=== PATIENT | female | born 1950 | race Two or more races ===

== ENCOUNTER 2018-01-07 06:42 | Inpatient (IN) | payer OTHER ==
[~2018-01-07 06:42] MED LIST: DICY20TA; HYDROCHLOROTH12.5 MG; INTESTINEX1 CA1; PNEU16DI2; PREVENT; RISEDRONATE SO150 MG
== END 2018-01-11 13:20 | disposition home or self-care (01) | DRG 908 ==
LOC: AMB-ENDOS 06:42 → SURH 17:53
PROVIDERS: Colon & Rectal Surgery
PROC: 0DJD8ZZ Inspection of Lower Intestinal Tract, Via Natural or Artificial Opening Endoscopic (ICD-10-PCS; 2018-01-07)
PROC: 0D7P8ZZ Dilation of Rectum, Via Natural or Artificial Opening Endoscopic (ICD-10-PCS; 2018-01-07)
PROC: 0DTE0ZZ Resection of Large Intestine, Open Approach (ICD-10-PCS; principal; 2018-01-07 14:00)
PROC: 30233N1 Transfusion of Nonautologous Red Blood Cells into Peripheral Vein, Percutaneous Approach (ICD-10-PCS; 2018-01-08)
DX: K91.71 Accidental puncture and laceration of a digestive system organ or structure during a digestive system procedure (principal); K57.32 Diverticulitis of large intestine without perforation or abscess without bleeding; Y65.8 Other specified misadventures during surgical and medical care; Y92.530 Ambulatory surgery center as the place of occurrence of the external cause; K62.4 Stenosis of anus and rectum; K59.09 Other constipation; D64.89 Other specified anemias

== ENCOUNTER → 2019-02-17 | Day surgery (SDC) | payer OTHER | END | disposition home or self-care (01) | LOC: ADM 02-09 09:30 → AMB-ENDOS 06:40 | DX: K57.20 Diverticulitis of large intestine with perforation and abscess without bleeding (principal); K64.1 Second degree hemorrhoids ==

== ENCOUNTER 2020-11-18 07:48 | Outpatient (CLI) | payer OTHER | END 2020-11-18 10:26 | disposition home or self-care (01) | LOC: SONOGRAMA 07:48 | PROVIDERS: ATTEND Pathology Anatomic Pathology & Clinical Pathology | DX: D34 Benign neoplasm of thyroid gland (principal); E04.1 Nontoxic single thyroid nodule ==

== ENCOUNTER 2021-01-08 07:48 | Outpatient (CLI) | payer OTHER | END 2021-01-08 07:49 | disposition home or self-care (01) | LOC: RX STUDY 07:48 | PROVIDERS: ATTEND Colon & Rectal Surgery | DX: R13.19 Other dysphagia (principal) ==

== ENCOUNTER 2021-01-24 08:40 | Day surgery (SDC) | payer OTHER | END 2021-01-24 12:59 | disposition home or self-care (01) | LOC: AMB-ENDOS 08:40 | PROVIDERS: ATTEND Colon & Rectal Surgery | DX: D12.5 Benign neoplasm of sigmoid colon (principal); D12.4 Benign neoplasm of descending colon; K64.1 Second degree hemorrhoids; Z20.822 Contact with and (suspected) exposure to COVID-19 ==

== ENCOUNTER 2025-11-19 13:59 | Outpatient (CLI) | payer OTHER | END 2025-11-19 14:03 | disposition home or self-care (01) | LOC: SONOGRAMA 13:59 | PROVIDERS: ATTEND Pathology Anatomic Pathology & Clinical Pathology | DX: D34 Benign neoplasm of thyroid gland (principal); E07.89 Other specified disorders of thyroid; E04.2 Nontoxic multinodular goiter ==